=== PATIENT | male | born 1935 | race Caucasian/White ===

== ENCOUNTER 2018-05-24 07:43 | Day surgery (SDC) ==
[2018-05-24] MEDS: BETADINE OPTH PREP OP PRN ×2 (08:25→09:00)
[2018-05-24] MEDS: TETRACAINE 0.5% UNIT-DOSE OP PRN ×2 (08:25→09:00)
[2018-05-24] MEDS: CYCLOGYL 2% OPTH OP PRN ×3 (08:26→08:36)
[2018-05-24] MEDS ORDERED: BRIMONIDINE TARTRATE 0.2% OPTH SOL OP PRN (08:28)
[2018-05-24] MEDS ORDERED: ZOFRAN 4 MG/2 ML IVP ONE (08:28)
[2018-05-24 08:41] VITALS: TEMP 98.2
[2018-05-24] MEDS: LIDOCAINE 1%/PHENYLEPHRINE 1.5% BSS (SURGERY) INTRAOCULA ONE ×2 (09:05→09:16)
[2018-05-24] MEDS: BSS WITH EPINEPHRINE OP ONE ×2 (09:05→09:16)
[2018-05-24] MEDS: DEX-MOXI-KETOR OPTH INJ 1/0.5/0.4 MG/ML IO ONE ×2 (09:05→09:16)
[2018-05-24] MEDS ORDERED: ZOFRAN 4 MG/2 ML ONE (09:08)
[2018-05-24] MEDS ORDERED: SUBLIMAZE ONE (09:08)
[2018-05-24] MEDS ORDERED: VERSED ONE (09:08)
[2018-05-24] MEDS ORDERED: LIDOCAINE 1% 20 ML MDV ID STA (11:03)
[2018-05-25 12:39] VITALS: BP 126/58
== END 2018-05-24 10:35 | disposition home or self-care (01) ==
LOC: SURG 07:43
PROVIDERS: ATTEND Ophthalmology
DX: H25.812 Combined forms of age-related cataract, left eye (principal)

== ENCOUNTER 2018-06-07 09:07 | Day surgery (SDC) | payer OTHER ==
[2018-06-07] MEDS: BETADINE OPTH PREP OP PRN ×2 (10:55→11:24)
[2018-06-07] MEDS: TETRACAINE 0.5% UNIT-DOSE OP PRN ×2 (10:55→11:24)
[2018-06-07] MEDS: CYCLOGYL 2% OPTH OP PRN ×3 (10:56→11:06)
[2018-06-07] MEDS ORDERED: DEX-MOXI-KETOR OPTH INJ 1/0.5/0.4 MG/ML IO ONE (11:00)
[2018-06-07] MEDS ORDERED: ZOFRAN 4 MG/2 ML IVP ONE (11:00)
[2018-06-07] MEDS ORDERED: LIDOCAINE 1%/PHENYLEPHRINE 1.5% BSS (SURGERY) INTRAOCULA ONE (11:00)
[2018-06-07] MEDS ORDERED: BRIMONIDINE TARTRATE 0.2% OPTH SOL OP PRN (11:00)
[2018-06-07] MEDS ORDERED: BSS WITH EPINEPHRINE OP ONE (11:00)
[2018-06-07] MEDS ORDERED: LIDOCAINE 1% 20 ML MDV ID STA (11:00)
[2018-06-07 11:07] VITALS: BP 138/76; TEMP 97.9
[2018-06-07] MEDS ORDERED: ZOFRAN 4 MG/2 ML ONE (11:35)
[2018-06-07] MEDS ORDERED: VERSED ONE (11:35)
[2018-06-07] MEDS ORDERED: SUBLIMAZE ONE (11:35)
== END 2018-06-07 12:35 | disposition home or self-care (01) ==
LOC: SURG 09:07
PROVIDERS: ATTEND Ophthalmology
DX: H25.811 Combined forms of age-related cataract, right eye (principal)